=== PATIENT | female | born 1965 | race Hispanic/Latino ===

== ENCOUNTER 2023-09-29 21:38 | Emergency (ER) | payer OTHER ==
[~2023-09-29] VITALS: Ht 152.4 cm; Wt 72.1 kg
[2023-09-29] MEDS ORDERED: AMOX1TAB16 PO (23:59)
[2023-09-30] MEDS: CEFTRIAXONE 1G VIAL IM ONE (00:06)
[2023-09-30 00:13] VITALS: BP 137/78; PULSE 70; RESP 18; O2SAT 98
== END 2023-09-30 00:16 | disposition home or self-care (01) ==
LOC: EDH 21:38
DX: M79.644 Pain in right finger(s) (principal); W54.0XXA Bitten by dog, initial encounter; Y93.89 Activity, other specified; Y92.89 Other specified places as the place of occurrence of the external cause; Y99.8 Other external cause status
CPT/HCPCS: 99283; 96372; J0696